=== PATIENT | female | born 1970 | race African-American/Black ===

== ENCOUNTER 2021-05-10 13:22 | Observation (INO) | payer MEDICARE, OTHER ==
[~2021-05-10 13:22] MED LIST: Iopamidol-370 76% 500 ML 1 ML ONE
[2021-05-10 13:41] LABS: #Eosinphils 0.4 thou/uL (0.0-0.7); #Lymphocytes 1.2 thou/uL (1.20-3.40); #Monocytes 0.6 thou/uL (0.11-0.59); #Neutrophils 1.7 thou/uL (1.40-6.50); %Basophils 0.6 % (0.0-1.0); %Eosinophils 10.3 % (0.0-10.0); %Lymphocytes 31.9 % (21.0-51.0); %Monocytes 14.7 % (0.0-10.0); %Neutrophils 42.5 % (42.0-75.0); Hemoglobin 13.6 g/dL (12.0-16.0); Mean Corpuscular HGB CONC 33.7 g/dL (32.0-36.0); Mean Corpuscular Hemoglobin 28.6 pg (27.0-31.0); Mean Corpuscular Volume 85.1 fL (78.0-98.0); Mean Platelet Volume 8.4 fL (7.4-10.4); Platelet Count 155 thou/uL (130-400); RBC Distribution Width 13.1 % (11.5-14.5); Red Blood Cell (RBC) Count 4.76 mill/uL (4.20-5.40); White Blood Cell (WBC) Count 3.9 thou/uL (4.8-10.8)
[2021-05-10 13:52] LABS: INR-International Normal Ratio 1.1; PTT 30.8 sec (22.9-36.1)
[2021-05-10 14:07] LABS: ALT (SGPT) 23 U/L (8-55); AST (SGOT) 17 U/L (5-34); Albumin 3.9 g/dL (3.5-5.0); Alkaline Phosphatase 147 U/L (40-110); Anion Gap 11 mmol/L (10-20); BUN (Urea Nitrogen) 27 mg/dL (9.8-20.1); Bilirubin, Total 0.4 mg/dL (0.2-1.2); CK (CPK) 57 U/L (29-168); Calc. Creatinine Clearance 0 mL/min (70-130); Calcium 10.5 mg/dL (7.8-10.44); Carbon Dioxide 29 mmol/L (22-29); Chloride 106 mmol/L (98-107); Globulin 3.9 g/dL (2.4-3.5); Glucose 149 mg/dL (70-105); Potassium 3.9 mmol/L (3.5-5.1); Protein, Total 7.8 g/dL (6.0-8.3); Sodium 142 mmol/L (136-145)
[2021-05-10 15:35] LABS: SARS-CoV-2 NAA Rapid Test Not Detected (NotDetected)
[2021-05-10 17:02] LABS: Troponin I Less than 0.010 ng/mL (< 0.028)
[2021-05-10] MEDS ORDERED: hydrALAZINE 20 MG/ML VIAL SLOW IVP PRN (17:50)
[2021-05-10] MEDS ORDERED: Dextrose 50% Abboject 50 ML SYRINGE SLOW IVP PRN ×2 (17:50→23:08)
[2021-05-10] MEDS ORDERED: Dextrose 5% in Water 1,000 ML IV PRN ×2 (17:50→23:08)
[2021-05-10] MEDS ORDERED: HumaLOG 300 UNITS/3 ML VIAL SC PRN ×2 (17:50→23:08)
[2021-05-10] MEDS ORDERED: Enoxaparin Sodium 40 MG/0.4 ML SYRINGE SC SCH (18:00)
[2021-05-10] MEDS ORDERED: Nitroglycerin 0.4 MG TAB (25 Tab Bottle) SL PRN (18:18)
[2021-05-10] MEDS: Morphine 4 MG/ML VIAL SLOW IVP PRN (19:09)
[2021-05-10] MEDS ORDERED: Pantoprazole 40 MG GRANULES PACKET PO SCH (19:45)
[2021-05-10 20:01] LABS: Anion Gap 15 mmol/L (10-20); BUN (Urea Nitrogen) 24 mg/dL (9.8-20.1); Calc. Creatinine Clearance 0 mL/min (70-130); Calcium 10.3 mg/dL (7.8-10.44); Carbon Dioxide 23 mmol/L (22-29); Chloride 106 mmol/L (98-107); Glucose 186 mg/dL (70-105); Potassium 3.9 mmol/L (3.5-5.1); Sodium 140 mmol/L (136-145)
[2021-05-10 20:04] LABS: Troponin I Less than 0.010 ng/mL (< 0.028)
[2021-05-10] MEDS: Atorvastatin Calcium 40 MG TAB PO SCH (21:06)
[2021-05-10] MEDS: Lactated Ringer's 1,000 ML IV SCH (21:06)
[2021-05-10] MEDS: Pantoprazole 40 MG GRANULES PACKET PO SCH (22:09)
[2021-05-11 06:16] LABS: Band 1 % (5-11); Eosinophils 6 % (0-10); Hemoglobin 12.5 g/dL (12.0-16.0); Lymphocytes 41 % (21-51); MDiff Complete? YES; Mean Corpuscular HGB CONC 32.9 g/dL (32.0-36.0); Mean Corpuscular Hemoglobin 28.2 pg (27.0-31.0); Mean Corpuscular Volume 85.8 fL (78.0-98.0); Mean Platelet Volume 8.8 fL (7.4-10.4); Monocytes 15 % (0-10); Neutrophil 36 % (42-75); Platelet Count 167 thou/uL (130-400); Platelet Morphology Comment Appears Adequate; RBC Distribution Width 13.3 % (11.5-14.5); RBC Morphology Normal; Red Blood Cell (RBC) Count 4.44 mill/uL (4.20-5.40)
[2021-05-11 06:18] LABS: Anion Gap 14 mmol/L (10-20); BUN (Urea Nitrogen) 23 mg/dL (9.8-20.1); Calc. Creatinine Clearance 58 mL/min (70-130); Calcium 10.4 mg/dL (7.8-10.44); Carbon Dioxide 25 mmol/L (22-29); Cardiac Risk 5.5 (Less than 4.5); Chloride 105 mmol/L (98-107); Cholesterol 165 mg/dl (< 200 Desired); Glucose 124 mg/dL (70-105); HDL Cholesterol 30 mg/dL (>60 Neg Risk); LDL Cholesterol, Calculated 92 mg/dL; Potassium 3.6 mmol/L (3.5-5.1); Sodium 140 mmol/L (136-145); Triglycerides 216 mg/dL (Less than 150)
[2021-05-11] MEDS: Morphine 4 MG/ML VIAL SLOW IVP PRN (09:18)
[2021-05-11] MEDS: Aspirin 81 mg Enteric Coated Tablet PO SCH (09:19)
[2021-05-11] MEDS ORDERED: Iopamidol 370 76% 100 ML VIAL ONE (10:13)
[2021-05-11] MEDS: Pantoprazole 40 MG GRANULES PACKET PO SCH (11:06)
[2021-05-11] MEDS ORDERED: Enoxaparin Sodium 40 MG/0.4 ML SYRINGE SC SCH (21:00)
[2021-05-11] MEDS ORDERED: hydrOXYzine 25 MG TAB PO SCH (23:00)
[2021-05-11] MEDS: Atorvastatin Calcium 40 MG TAB PO SCH (23:22)
[2021-05-11] MEDS: Lactated Ringer's 1,000 ML IV SCH (23:29)
[2021-05-12] MEDS: Morphine 4 MG/ML VIAL SLOW IVP PRN ×2 (04:51→10:55)
[2021-05-12] MEDS: Aspirin 81 mg Enteric Coated Tablet PO SCH (08:30)
[2021-05-12 15:43] VITALS: BP 121/86; TEMP 97.9
[2021-05-12] MEDS ORDERED: RAMELTEON 8 MG PO SCH (21:00)
[2021-05-14] MEDS ORDERED: FLU VACC QS2021-22(6MOS UP)/PF 60 MCG/0.5 ML SYRINGE IM ONE (09:00)
== END 2021-05-12 19:46 | disposition home or self-care (01) ==
LOC: EDBD 13:22 → ERS 13:22 → NEURO 15:44
PROVIDERS: ADMIT Internal Medicine; ATTEND Family Medicine
DX: R20.2 Paresthesia of skin (principal); R59.1 Generalized enlarged lymph nodes; E11.40 Type 2 diabetes mellitus with diabetic neuropathy, unspecified; E78.5 Hyperlipidemia, unspecified; R07.9 Chest pain, unspecified; G89.29 Other chronic pain; M54.9 Dorsalgia, unspecified; N20.0 Calculus of kidney; I08.1 Rheumatic disorders of both mitral and tricuspid valves; M50.21 Other cervical disc displacement, high cervical region; M48.02 Spinal stenosis, cervical region; M25.78 Osteophyte, vertebrae; M51.26 Other intervertebral disc displacement, lumbar region; M47.816 Spondylosis without myelopathy or radiculopathy, lumbar region; M48.061 Spinal stenosis, lumbar region without neurogenic claudication; M51.37 Other intervertebral disc degeneration, lumbosacral region; M47.817 Spondylosis without myelopathy or radiculopathy, lumbosacral region; M43.17 Spondylolisthesis, lumbosacral region; M48.07 Spinal stenosis, lumbosacral region; Z79.899 Other long term (current) drug therapy; Z88.1 Allergy status to other antibiotic agents; Z88.8 Allergy status to other drugs, medicaments and biological substances; Z98.1 Arthrodesis status; Z20.822 Contact with and (suspected) exposure to COVID-19
CPT/HCPCS: 70450; 70496; 70498; 70551; 71045; 72141; 72148; 74177; 80048 ×2; 80053; 80061; 82550; 82962 ×3; 83735; 84100; 84484 ×2; 85025 ×2; 85610; 85730; 93005; 93306; 94760; 97116; 97139 ×5; 99285; U0002; 36415; 36416; 93010; 96372; 96374; G0378; J1650; J1815; J2270; J7120; Q9967